=== PATIENT | male | born 1995 | race Caucasian/White ===

== ENCOUNTER 2019-08-18 21:38 | Emergency (ER) | payer MEDICAID ==
--- NOTE | 2019-08-18 21:57 | Emergency Department Record ---
History of Present Illness - General Chief Complaint: Laceration(s) Stated Complaint: LT THUMB LAC Time Seen by Provider: 08/18/19 21:40 Source: Patient Mode of Arrival: Ambulatory Limitations: No limitations - History of Present Illness Initial Commments: 24 yo male presents to ED for evaluation following laceration to the dorsal aspect of the left thumb that occurred several hours ago resulting from a laceration while cutting drywall. Patient reports bleeding stopped several hours ago, denies loss of flexion/extension on examination. Patient denies other injury on examination, patient reports that he does not recall his last tetanus. Onset/Timin -: Hour(s) Extremity Location: Left: Hand Place: Home Context: Accidental Associated Symptoms: None Treatments Prior to Arrival: Bandage - [place] Coma Scale Eye Response: (4) Open spontaneously Motor Response: (6) Obeys commands Verbal Response: (5) Oriented [place] Total: 15 - Related Data Hx Tetanus Toxoid Vaccination: Yes Year of Tetanus Vaccination: 2009 Home Medications Medication Instructions Recorded Confirmed Last Taken Citalopram Hydrobromide 2 tab PO DAILY 08/18/19 08/18/19 08/18/19 [Citalopram HBr] Previous Rx's Medication Instructions Recorded Clindamycin HCl 300 mg PO QID #27 capsule 08/18/19 Allergies Allergy/AdvReac Type Severity Reaction Status Date / Time amoxicillin Allergy DIFFICULTY Verified 04/10/16 16:42 BREATHING codeine Allergy HIVES Verified 04/10/16 16:42 Travel Screening - Travel/Exposure Within Last 30 Days Have you traveled within the last 30 days?: No - Travel/Exposure Within Last Year Have you traveled outside the [place] in the last year?: No - Additonal Travel Details Have you been exposed to anyone with a communicable illness?: No - Travel Symptoms Symptom Screening: None Review of Systems Constitutional: Denies: Chills, Fever, Malaise, Night sweats Eyes: Denies: Eye discharge, Eye pain ENT: Denies: Congestion, Ear pain, Epistaxis Respiratory: Denies: Cough, Dyspnea Cardiovascular: Denies: Chest pain, Dyspnea on exertion Endocrine: Denies: Fatigue, Heat or cold intolerance Gastrointestinal: Denies: Abdominal pain, Nausea, Vomiting Genitourinary: Denies: Incontinence, Retention Musculoskeletal: Denies: Arthralgia, Back pain Skin: Reports: Other (Thumb laceration). Denies: Bruising, Change in color Neurological: Denies: Abnormal gait, Confusion, Headache, Seizure Psychiatric: Denies: Anxiety Hematological/Lymphatic: Denies: Anemia, Blood Clots Past Medical History - SOCIAL HISTORY Smoking Status: Current every day smoker Alcohol Use: None, Rare Drug Use: Heavy Drug Use Detail:: Marijuana - RESPIRATORY Hx Respiratory Disorders: No - CARDIOVASCULAR Hx Cardio Disorders: No - NEURO Hx Neuro Disorders: No - GI Hx GI Disorders: No - Hx Genitourinary Disorders: No - ENDOCRINE Hx Endocrine Disorders: No - MUSCULOSKELETAL Hx Musculoskeletal Disorders: No - PSYCH Hx Psych Problems: No - HEMATOLOGY/ONCOLOGY Hx Hematology/Oncology Disorders: No Family Medical History Any Significant Family History?: No Physical Exam - General General Appearance: Alert, Oriented x3, Cooperative, Mild distress Limitations: No limitations - Head Head exam: Atraumatic, Normocephalic, Normal inspection Head exam detail: negative: Abrasion, Contusion, Armijo's sign, General tenderness, Hematoma, Laceration - Eye Eye exam: Normal appearance. negative: Conjunctival injection, Periorbital swelling, Periorbital tenderness, Scleral icterus - ENT Ear exam: negative: Auricular hematoma, Auricular trauma Nasal Exam: negative: Active bleeding, Discharge, Dried blood, Foreign body Mouth exam: negative: Drooling, Laceration, Muffled voice, Tongue elevation - Neck Neck exam: Normal inspection. negative: Meningismus, Tenderness - Respiratory Respiratory exam: Normal lung sounds bilaterally. negative: Rales, Respiratory distress, Rhonchi, Stridor - Cardiovascular Cardiovascular Exam: Regular rate, Normal rhythm, Normal heart sounds - GI/Abdominal GI/Abdominal exam: Soft. negative: Rebound, Rigid, Tenderness - Rectal Rectal exam: Deferred - exam: Deferred - Extremities Extremities exam: Tenderness, Other (2.0 cm laceration to the dorsal aspect of the left thumb proximally, no bleeding present, no tendon visualized on examination. Flexion/extension are intact against resistance.). negative: Calf tenderness, Pedal edema - Back Back exam: Denies: CVA tenderness (R), CVA tenderness (L) - Neurological Neurological exam: Alert, Normal gait, Oriented X3 - Psychiatric Psychiatric exam: Normal affect, Normal mood - Skin Skin exam: Normal color. negative: Abrasion Type of lesion: negative: abrasion Course Vital Signs 08/18/19 21:42 Temperature 98.2 F Pulse Rate [ 62 Pulse Ox Probe] Respiratory 20 Rate Blood Pressure 128/90 [Left Arm] Pulse Ox 98 - Reevaluation(s) Reevaluation #1: 08/18/19 22:09 Procedure Note: 2.0 cm laceration to the dorsal aspect of left thumb, bleeding controlled. Wound was cleaned and prepped in sterile fashion, no residual FB identified on examination. No tendon injury is identified on exmaination. ROM intact with both flexion/extension against resistance. Wound was anesthetized with 1.0 mL of 1% Lidocaine without epinephrine with good anesthesia, and the laceration was repaired with 4-0 Prolene (#3) sutures in interrupted fashion. Patient tolerated the procedure well without complications. Patient's tetanus was updated prior to discharge. Patient was also started on clindamycin prior to discharge given the location of the patient's laceration. Patient and his mother were given wound care instructions and signs/symptoms to return to the ED for as well including: increased swelling, pain, redness, or discharge from the wound. Patient was counseled to return to the ED for suture removal in 10-14 days. Disposition Disposition: Discharge Clinical Impression: Thumb laceration Qualifiers: Encounter type: initial encounter Damage to nail status: without damage Foreign body presence: without foreign body Laterality: left Qualified Code(s): S61.012A - Laceration without foreign body of left thumb without damage to nail, initial encounter Disposition: Home, Self-Care Condition: (2) Stable Instructions: Care For Your Stitches (ED) Additional Instructions: Return to ED if your symptoms worsen or if you have any concerns. Clindamycin as directed. Follow-up with your family doctor in 1 week as directed. Sutures out 10-14 days. Prescriptions: Clindamycin HCl 300 mg PO QID #27 capsule Forms: Patient Portal Access Time of Disposition: 22:08 Quality - Quality Measures Quality Measures: N/A - Blood Pressure Screening Does Patient Have Any of the Following: No Blood Pressure Classification: Hypertensive Reading Systolic Measurement: 128 Diastolic Measurement: 90 Screening for High Blood Pressure: < First Hypertensive BP, F/U Documented > [[id number]] First Hypertensive Follow-up Interventions: Referral to alternative/primary care provider.
[2019-08-18] MEDS: TETANUS AND DIPHTHERIA PF 0.5 ML SYR IM ONE (22:07)
[2019-08-18] MEDS: CLINDAMYCIN 150 MG CAP PO ONE (22:08)
== END 2019-08-18 22:16 | disposition home or self-care (01) ==
LOC: ER 21:38
DX: S61.012A Laceration without foreign body of left thumb without damage to nail, initial encounter (principal); W27.8XXA Contact with other nonpowered hand tool, initial encounter; Y92.009 Unspecified place in unspecified non-institutional (private) residence as the place of occurrence of the external cause; F17.210 Nicotine dependence, cigarettes, uncomplicated
CPT/HCPCS: 12001; 96372; 99283